=== PATIENT | female | born 1980 | race Two or more races ===

== ENCOUNTER 2017-11-09 18:26 | Emergency (ER) | payer MEDICAID ==
--- NOTE | 2017-11-09 20:34 | ED Physician Documentation ---
History of Present Illness - Stated complaint Stated Complaint: ANKLE PX - Chief complaint Chief Complaint: Ext Problem - History obtained from History obtained from: Patient - History of Present Illness Timing: How many weeks ago (2-3) Pain level now: 7 Improved by: rest Worsened by: weight-bearing, movement - Additonal information Additional information: c/o atraumatic left foot and ankle pain and swelling x 2-3 weeks. the pain and swelling were initially limited to the proximal foot and ankle, particularly lateral aspect, but have gradually spread proximally (still only involving distal-most lower leg). denies chest pain, denies dyspnea Review of Systems Constitutional: denies: Fever, Chills, Sweats Cardiac: denies: Chest pain / pressure Respiratory: denies: Dyspnea Skin: denies: Rash Musculoskeletal: reports: Extremity pain, Joint pain, Extremity swelling, Joint swelling, Pain with weight bearing Neurologic: denies: Focal weakness, Numbness PD PAST MEDICAL HISTORY - Past Medical History Past Medical History: No Musculoskeletal: Chronic back pain - Past Surgical History Past Surgical History: Yes Ortho: Spine surgery - Present Medications Home Medications: Ambulatory Orders Medication Instructions Recorded Confirmed Dicyclomine [Bentyl] 10 mg PO Q6H PRN #10 capsule 01/19/16 Loperamide [Imodium] 2 mg PO ONCE PRN #8 capsule 01/19/16 - Allergies Allergies/Adverse Reactions: Allergies Allergy/AdvReac Type Severity Reaction Status Date / Time No Known Drug Allergies Allergy Verified 01/19/16 11:54 - Social History Does the pt smoke?: No Smoking Status: Never smoker Does the pt drink ETOH?: No Does the pt have substance abuse?: No - Immunizations Immunizations are current?: Yes - POLST Patient has POLST: No PD ED PE NORMAL - Vitals Vital signs reviewed: Yes - General General: Alert and oriented X 3, No acute distress, Well developed/nourished - Respiratory Respiratory: No respiratory distress - Derm Derm: Normal color, Warm and dry, No rash - Extremities Extremities: No tenderness to palpate, Normal ROM s pain, No calf tenderness / cord, Other (trace left foot and ankle edema) Results - Vitals Vitals: Vital Signs - 24 hr 11/09/17 11/09/17 11/09/17 18:36 20:12 23:41 Temperature 36.2 C L 36.3 C L 36.4 C L Heart Rate 83 87 68 Respiratory 16 16 12 Rate Blood Pressure 148/111 H 144/98 H 160/93 H O2 Saturation 99 99 99 Oxygen O2 Source Room air - Rads (name of study) LLE doppler US Radiology: Prelim report reviewed, See rad report PD MEDICAL DECISION MAKING - ED course Complexity details: reviewed results, re-evaluated patient, considered differential, d/w patient - Sepsis Event Vital Signs: Vital Signs - 24 hr 11/09/17 11/09/17 11/09/17 18:36 20:12 23:41 Temperature 36.2 C L 36.3 C L 36.4 C L Heart Rate 83 87 68 Respiratory 16 16 12 Rate Blood Pressure 148/111 H 144/98 H 160/93 H O2 Saturation 99 99 99 Oxygen O2 Source Room air Departure - Departure Disposition: 01 Home, Self Care Clinical Impression: Pain of lower extremity Condition: Good Instructions: ED Leg Swelling Unilateral Follow-Up: [facility] [place] [Provider Group] [facility] [Provider Group] Discharge Date/Time: 11/09/17 23:43
--- NOTE | 2017-11-09 21:58 | Ultrasound Report ---
Reason: atraumatic LLE swelling, pain Procedure Date: 11/09/2017 Accession Number: [id number] / [id number] Procedure: US - Duplex Ext Veins Left CPT Code: FULL RESULT: EXAM: LEFT LOWER EXTREMITY VENOUS ULTRASOUND EXAM DATE: 11/09/2017 09:15 PM. CLINICAL HISTORY: Atraumatic left lower extremity swelling, pain. COMPARISON: None. TECHNIQUE: Real-time sonographic vascular imaging was performed by the oyster worker through the lower extremity utilizing both color-flow and Doppler spectral analysis. Multiple patient portal representative static images were saved for review. FINDINGS: Common Femoral Vein (CFV): Normal. CFV-GSV Junction: Normal. Profunda Femoral Vein (PFV): Normal. Femoral Vein (FV) Prox: Normal. Femoral Vein (FV) Mid: Normal. Femoral Vein (FV) Dist: Normal. Popliteal Vein: Normal. Posterior Tibial Veins: Normal. Peroneal Veins: Limited visualization. IMPRESSION: No evidence for deep venous thrombosis. RADIA
[2017-11-09 23:42] VITALS: BP 160/93
== END 2017-11-09 23:43 | disposition home or self-care (01) ==
LOC: ED 18:26
DX: M79.662 Pain in left lower leg (principal); R22.42 Localized swelling, mass and lump, left lower limb
CPT/HCPCS: 99282; 99283

== ENCOUNTER 2018-06-30 15:58 | Emergency (ER) | payer MEDICAID ==
[2018-06-30 16:04] VITALS: BP 156/106
[2018-06-30] MEDS ORDERED: CYCLOBENZAPRINE 10 MG TABLET PO STA (16:30)
--- NOTE | 2018-06-30 16:38 | ED Physician Documentation ---
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 No fevers. Does not recall any specific injury. Took Motrin without relief. No numbness tingling. No changes in her vision. No headaches. No numbness tingling in the hand or arm Review of Systems Constitutional: denies: Fever : denies: Now EGA Skin: denies: Rash PD PAST MEDICAL HISTORY - Past Medical History Past Medical History: Yes Musculoskeletal: Chronic back pain - Past Surgical History Past Surgical History: Yes Ortho: Spine surgery - Present Medications Home Medications: Ambulatory Orders Medication Instructions Recorded Confirmed Cyclobenzaprine [Flexeril] 10 mg PO TID PRN #20 tablet 06/30/18 Meloxicam [Mobic] 15 mg PO DAILY PRN #20 tablet 06/30/18 - Allergies Allergies/Adverse Reactions: Allergies Allergy/AdvReac Type Severity Reaction Status Date / Time No Known Drug Allergies Allergy Verified 06/30/18 16:04 - Social History Does the pt smoke?: No Smoking Status: Never smoker Does the pt drink ETOH?: No Does the pt have substance abuse?: No - Immunizations Immunizations are current?: Yes - POLST Patient has POLST: No PD ED PE NORMAL - Vitals Vital signs reviewed: Yes - General General: Alert and oriented X 3, No acute distress - HEENT HEENT: Atraumatic, PERRL, Moist mucous membranes - Neck Neck: Supple, no meningeal sign, No bony TTP, No JVD, No bruit, Other (Mild paraspinal spasm right paracervical. 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 Will trial on anti- inflammatories as well as muscle relaxants for home. Will follow up with her doctor for further care. No evidence of carotid or vertebral artery dissection. Normal neurological exam. No evidence of meningitis. Patient counseled regarding signs and symptoms for which I believe and urgent re-evaluation would be necessary. Patient with good understanding of and agreement to plan and is comfortable going home at this time This document was made in part using voice recognition software. While efforts are made to proofread this document, sound alike and grammatical errors may occur. Departure - Departure Disposition: 01 Home, Self Care Clinical Impression: Neck muscle spasm Condition: Good Instructions: ED Spasm Neck No Injury Follow-Up: your,doctor in 1 week [Other] Prescriptions: Cyclobenzaprine [Flexeril] 10 mg PO TID PRN #20 tablet PRN Reason: Spasms Meloxicam [Mobic] 15 mg PO DAILY PRN #20 tablet PRN Reason: pain Comments: Continue to gently stretch your neck. This should improve over the next few days. Return if you worsen. Do not drive or operate heavy machinery while taking the Flexeril. Forms: Activity restrictions Discharge Date/Time: 06/30/18 16:41
== END 2018-06-30 16:41 | disposition home or self-care (01) ==
LOC: ED 15:58
DX: M62.838 Other muscle spasm (principal)
CPT/HCPCS: 99282; 99283; A9270

== ENCOUNTER 2019-04-04 16:27 | Emergency (ER) | payer SELFPAY ==
[2019-04-04 16:44] VITALS: BP 153/100
--- NOTE | 2019-04-04 16:54 | ED Physician Documentation ---
PD HPI FEMALE - Stated complaint Stated Complaint: FEMALE - Chief complaint Chief Complaint: General - History obtained from History obtained from: Patient - History of Present Illness Timing - onset: How many days ago (few) Timing - duration: Days (few) Timing - details: Gradual onset, Still present Associated symptoms: Vaginal discharge, Genital sore/lesion (feeling little bumps near right labia. Not tender.). No: Dysuria, Urinary frequency Contributing factors: Sexually active Similar symptoms before: Has not had sx before Recently seen: Not recently seen Review of Systems Constitutional: denies: Fever, Chills Nose: denies: Rhinorrhea / runny nose, Congestion Throat: denies: Oral lesions / sores, Sore throat Respiratory: denies: Cough : reports: Discharge. 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 Musculoskeletal: Chronic back pain - Past Surgical History Past Surgical History: Yes Ortho: Spine surgery - Present Medications Home Medications: Ambulatory Orders Medication Instructions Recorded Confirmed Cyclobenzaprine [Flexeril] 10 mg PO TID PRN #20 tablet 06/30/18 Meloxicam [Mobic] 15 mg PO DAILY PRN #20 tablet 06/30/18 Fluconazole [Diflucan] 150 mg PO Q3D #2 tablet 04/04/19 Metronidazole [Flagyl] 500 mg PO BID #20 tablet 04/04/19 - Allergies Allergies/Adverse Reactions: Allergies Allergy/AdvReac Type Severity Reaction Status Date / Time No Known Drug Allergies Allergy Verified 04/04/19 16:35 - Social History Does the pt smoke?: No Smoking Status: Never smoker Does the pt drink ETOH?: No Does the pt have substance abuse?: No - Immunizations Immunizations are current?: Yes - POLST Patient has POLST: No PD ED PE NORMAL - Vitals Vital signs reviewed: Yes - General General: Alert and oriented X 3, No acute distress, Well developed/nourished - Abdomen Abdomen: Soft, Non tender - Female 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 Vault with odorous, white to clear watery discharge. No cervicitis noted. ) - Rectal Rectal: Deferred - Back Back: No CVA TTP Results - Vitals Vitals: Vital Signs - 24 hr 04/04/19 16:35 Temperature 36.8 C Heart Rate 92 Respiratory 15 Rate Blood Pressure 153/100 H O2 Saturation 100 Oxygen O2 Source Room air - Labs Labs: Laboratory Tests 04/04/19 04/04/19 17:05 17:53 Urine Color YELLOW Urine Clarity CLEAR Urine pH 5.5 Ur Specific Gore >=1.030 H Urine Protein NEGATIVE Urine Glucose (UA) NEGATIVE Urine Ketones NEGATIVE Urine Occult Blood NEGATIVE Urine Nitrite POSITIVE H Urine Bilirubin NEGATIVE Urine Urobilinogen 0.2 (NORMAL) Ur Leukocyte Esterase NEGATIVE Urine RBC 3 Urine WBC 0-3 Ur Squamous Epith Cells RARE Squamous Urine Bacteria Moderate H Urine Mucus Marked Strands Ur Microscopic Review INDICATED Urine Culture Comments INDICATED Urine HCG, Qual NEGATIVE C. glabrata (PCR) NEGATIVE C. krusei (PCR) NEGATIVE Brianna species DNA NEGATIVE T. vaginalis (PCR) NEGATIVE Bact Vaginosis (PCR) POSITIVE A PD MEDICAL DECISION MAKING - ED course Complexity details: reviewed results, considered differential (discharge appearance and odor c/w BV, and also consider yeast vaginitis. ), d/w patient Departure - Departure Disposition: 01 Home, Self Care Clinical Impression: Vaginitis Qualifiers: Chronicity: acute Qualified Code(s): N76.0 - Acute vaginitis Condition: Stable Record reviewed to determine appropriate education?: Yes Instructions: ED Vaginosis Bacterial, ED Vaginal Infec Fungal Brianna Prescriptions: Fluconazole [Diflucan] 150 mg PO Q3D #2 tablet Metronidazole [Flagyl] 500 mg PO BID #20 tablet Comments: This clinically looks like combination of bacterial and yeast vaginitis. We will treat her with Diflucan and metronidazole as prescribed. We did do test to look for those conditions as well as STDs. The results of that will be in a day or 2 and will call you if we need to change treatment. Otherwise stay well-hydrated. Tylenol or ibuprofen if needed for discomfort or pains. I would anticipate improvement over the next several days with resolution by a week. Recheck if not improved during that timeframe. Discharge Date/Time: 04/04/19 18:09
[2019-04-04 17:11] LABS: BILIRUBIN,URINE NEGATIVE (NEGATIVE); GLUCOSE, URINE (UA) NEGATIVE (NEGATIVE); KETONES,URINE (UA) NEGATIVE (NEGATIVE); LEUKOCYTE ESTERASE, URINE NEGATIVE (NEGATIVE); NITRITE,URINE POSITIVE (NEGATIVE); OCCULT BLOOD,URINE NEGATIVE (NEGATIVE); PH,URINE 5.5 PH (5.0-7.5); PROTEIN,URINE NEGATIVE (NEGATIVE); UROBILINOGEN,URINE 0.2 (NORMAL) E.U./dL (NORMAL)
[2019-04-04 17:16] LABS: CLARITY,URINE CLEAR (CLEAR); HCG UR QUAL NEGATIVE
[2019-04-04 17:28] LABS: BACTERIA,URINE Moderate /HPF (None Seen); MUCUS,URINE Marked Strands; RBC,URINE 3 /HPF (0-5); SQUAMOUS EPITHELIAL CELL,UR RARE Squamous (<= Few)
[2019-04-04] MEDS ORDERED: metroNIDAZOLE 250 MG TABLET PO STA (17:54)
[2019-04-04] MEDS ORDERED: FLUCONAZOLE 100 MG TABLET PO STA (17:54)
[2019-04-04 19:57] LABS: CANDIDA GROUP DNA NEGATIVE (NEGATIVE); CANDIDA KRUSEI DNA NEGATIVE (NEGATIVE); TRICHOMONAS VAGINALIS DNA NEGATIVE (NEGATIVE)
[2019-04-04 22:32] LABS: TRICHOMONAS VAGINALIS DNA NEGATIVE (NEGATIVE)
== END 2019-04-04 18:09 | disposition home or self-care (01) ==
LOC: ED 16:27
DX: N76.0 Acute vaginitis (principal)
CPT/HCPCS: 81001; 81025; 87077; 87086; 87181; 87481; 87491; 87591; 87661; 87801; 99283; 99284; A9270; 81003

== ENCOUNTER 2019-06-07 12:33 | Emergency (ER) | payer OTHER ==
[2019-06-07] MEDS ORDERED: IBUPROFEN 800 MG TABLET PO STA (14:01)
[2019-06-07] MEDS ORDERED: TETANUS/DIPHTHERIA/PERTUSSIS 0.5 ML SYRINGE IM ONE (14:06)
--- NOTE | 2019-06-07 14:09 | ED Physician Documentation ---
PD HPI UPPER EXT INJURY - Stated complaint Stated Complaint: FINGER LAC - Chief complaint Chief Complaint: Laceration - History obtained from History obtained from: Patient - History of Present Illness Location: Left, Finger (index) Pain level max: 5 Pain level now: 2 Improved by: Rest Worsened by: Moving, Palpating Associated symptoms: No: Weakness, Numbness, Tingling, Swelling Recently seen: Not recently seen - Additonal information Additional information: 38-year-old right-handed female caught the right fifth digit caught in a car door. This caused an abrasion and pain. Worse with movement and better with rest. 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 Musculoskeletal: Chronic back pain - Past Surgical History Past Surgical History: Yes Ortho: Spine surgery - Present Medications Home Medications: Ambulatory Orders Medication Instructions Recorded Confirmed No Known Home Medications 06/07/19 06/07/19 - Allergies Allergies/Adverse Reactions: Allergies Allergy/AdvReac Type Severity Reaction Status Date / Time No Known Drug Allergies Allergy Verified 06/07/19 12:40 - Social History Does the pt smoke?: No Smoking Status: Never smoker Does the pt drink ETOH?: No Does the pt have substance abuse?: No - Immunizations Immunizations are current?: No Immunizations: TDAP >10years/unknown - POLST Patient has POLST: No PD ED PE NORMAL - Vitals Vital signs reviewed: Yes - General General: Alert and oriented X 3, No acute distress - HEENT HEENT: Moist mucous membranes - Derm Derm: Warm and dry - Extremities Extremities: Other (Right fifth digit, distal phalanx is neurovascular intact. Very small subungual hematoma. Abrasions to the distal finger. No bony tenderness over the remainder of the finger. Full range of motion.) - Neuro Neuro: Alert and oriented X 3 Results - Vitals Vitals: Vital Signs - 24 hr 06/07/19 12:38 Temperature 36.1 C L Heart Rate 68 Respiratory 18 Rate Blood Pressure 144/99 H O2 Saturation 100 Oxygen O2 Source Room air PD MEDICAL DECISION MAKING - ED course Complexity details: considered differential, d/w patient ED course: 38-year-old female with a right fifth digit crush injury from a car door. Abrasions were covered with Dermabond. Tolerated well. Placed in a splint to protect the distal aspect of the finger. 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 Patient declines an x-ray at this time. Patient counseled regarding signs and symptoms for which I believe and urgent re-evaluation would be necessary. Patient with good understanding of and agreement to plan and is comfortable going home at this time This document was made in part using voice recognition software. While efforts are made to proofread this document, sound alike and grammatical errors may occur. Departure - Departure Disposition: Home, Self Care Clinical Impression: Finger laceration Qualifiers: Encounter type: initial encounter Finger: little finger Damage to nail status: without damage Foreign body presence: without foreign body Laterality: right Qu alified Code(s): S61.216A - Laceration without foreign body of right little finger without damage to nail, initial encounter Condition: Good Instructions: ED Laceration Hand Follow-Up: your,doctor as needed. [Other] Comments: Return if you worsen. The glue will dissolve in a few days. You can wear the splint as needed for comfort. Return if you notice redness, swelling or drainage from the wound. Return also for increasing pain. We did discuss an x- ray today, but did not perform this at this time. This would not change our management anyway at this time.
[2019-06-07 14:21] VITALS: BP 145/89
== END 2019-06-07 14:26 | disposition home or self-care (01) ==
LOC: ED 12:33
DX: S60.416A Abrasion of right little finger, initial encounter (principal); S60.151A Contusion of right little finger with damage to nail, initial encounter; W23.1XXA Caught, crushed, jammed, or pinched between stationary objects, initial encounter
CPT/HCPCS: 90471; 90715; 99283; 99284; A9270

== ENCOUNTER 2019-06-08 21:03 | Emergency (ER) | payer OTHER ==
[2019-06-08 21:09] VITALS: BP 150/100
--- NOTE | 2019-06-08 21:30 | ED Physician Documentation ---
History of Present Illness - Stated complaint Stated Complaint: FINGER INJ - Chief complaint Chief Complaint: Ext Problem - History obtained from History obtained from: Patient - History of Present Illness Timing: Yesterday Pain level max: 0 Pain level now: 0 - Additonal information Additional information: 38-year-old female seen here yesterday for a crush injury to the right fifth digit. She states that there was bleeding today. Came back in for repeat evaluation. No pain. No fevers. Nothing makes it better or worse. 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 Musculoskeletal: Chronic back pain - Past Surgical History Past Surgical History: Yes Ortho: Spine surgery - Present Medications Home Medications: Ambulatory Orders Medication Instructions Recorded Confirmed No Known Home Medications 06/07/19 06/07/19 - Allergies Allergies/Adverse Reactions: Allergies Allergy/AdvReac Type Severity Reaction Status Date / Time No Known Drug Allergies Allergy Verified 06/08/19 21:05 - Social History Does the pt smoke?: No Smoking Status: Never smoker Does the pt drink ETOH?: No Does the pt have substance abuse?: No - Immunizations Immunizations are current?: No Immunizations: TDAP >10years/unknown - POLST Patient has POLST: No PD ED PE NORMAL - Vitals Vital signs reviewed: Yes - General General: Alert and oriented X 3, No acute distress - Derm Derm: Warm and dry - Extremities Extremities: Other (Right fifth digit with glue in place. No active bleeding. Neurovascular intact. No subungual hematoma. No signs of infection) - Neuro Neuro: Alert and oriented X 3 Results - Vitals Vitals: Vital Signs - 24 hr 06/08/19 21:05 Temperature 36.7 C Heart Rate 82 Respiratory 14 Rate Blood Pressure 150/100 H O2 Saturation 98 Oxygen O2 Source Room air PD MEDICAL DECISION MAKING - ED course Complexity details: considered differential, d/w patient ED course: Glue remains intact. I did offer to remove the glue and repair the wound in a different manner patient declines this. We will continue the current treatment plan. No signs of infection. No subungual hematoma. Pad of the finger is soft. Neurovascularly intact. Patient counseled regarding signs and symptoms for which I believe and urgent re-evaluation would be necessary. Patient with good understanding of and agreement to plan and is comfortable going home at this time This document was made in part using voice recognition software. While efforts are made to proofread this document, sound alike and grammatical errors may occur. Departure - Departure Disposition: 01 Home, Self Care Clinical Impression: Visit for wound check Condition: Good Instructions: ED Crush Injury Finger No Fx Follow-Up: your,doctor in 1 week for wound check [Other] Comments: Return if you worsen. Continue to keep the wound clean at home. The glue will fall off on its own in a few days. Return if you notice redness, swelling, drainage from the wound. Discharge Date/Time: 06/08/19 21:38
== END 2019-06-08 21:38 | disposition home or self-care (01) ==
LOC: ED 21:03
DX: S61.216D Laceration without foreign body of right little finger without damage to nail, subsequent encounter (principal); X58.XXXD Exposure to other specified factors, subsequent encounter
CPT/HCPCS: 99282

== ENCOUNTER 2020-01-01 16:19 | Outpatient (CLI) | payer OTHER | END 2020-01-01 23:59 | disposition home or self-care (01) | LOC: LAB.R 16:19 | PROVIDERS: ATTEND Family Medicine | DX: R39.9 Unspecified symptoms and signs involving the genitourinary system (principal) | CPT/HCPCS: 87086 ==

== ENCOUNTER 2020-03-01 15:25 | Emergency (ER) | payer OTHER ==
[2020-03-01] MEDS ORDERED: KETOROLAC 30 MG/ML VIAL IVP STA (15:53)
[2020-03-01] MEDS ORDERED: SODIUM CHLORIDE 0.9% 1,000 ML IV STA (15:53)
[2020-03-01] MEDS ORDERED: DEXAMETHASONE 10 MG/ML VIAL IVP STA (15:53)
--- NOTE | 2020-03-01 16:05 | ED Physician Documentation ---
PD HPI BACK PAIN - Stated complaint Stated Complaint: BACK PX/INJ - Chief complaint Chief Complaint: Back Pain - History obtained from History obtained from: Patient - History of Present Illness Timing - onset: How many days ago (5) Timing - duration: Days (5) Timing - details: Abrupt onset, Still present Location: Lower, Right, Left Quality: Pain, Spasm, Sharp, Similar to prior episodes Associated symptoms: No: Fever, Weakness, Numbness, Incontinent of urine, Unable to urinate, Hematuria, Incontinent of stool Improves with: Rest, Ice, Position, Meds Worsened by: Movement Contributing factors: Lifting, Twisting Similar symptoms before: Diagnosis (sciatica) Recently seen: Other (urgent care) - Additional information Additional information: 39-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 She went into the urgent care the next day and was prescribed some muscle relaxant had some improvement over the next 2 days and then today had the onset of pain on the right side. Review of Systems Constitutional: denies: Fever Eyes: denies: Decreased vision Ears: denies: Ear pain Nose: denies: Congestion Throat: denies: Sore throat Cardiac: denies: Chest pain / pressure, Palpitations Respiratory: denies: Dyspnea, Cough GI: denies: Abdominal Pain, Nausea, Vomiting : denies: Dysuria, Frequency Skin: denies: Rash Musculoskeletal: reports: Back pain. 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 Musculoskeletal: Chronic back pain - Past Surgical History Past Surgical History: Yes Ortho: Spine surgery - Present Medications Home Medications: Ambulatory Orders Medication Instructions Recorded Confirmed Cyclobenzaprine [Flexeril] 10 mg PO TID PRN #20 tablet 03/01/20 Hydrocodone/Acetaminophen [[place] 1 - 2 each PO Q6HR PRN #14 tablet 03/01/20 5-325 Tablet] Meloxicam [Mobic] 7.5 mg PO BID 03/01/20 03/01/20 Methocarbamol [Robaxin-750] 750 mg PO BID PRN 03/01/20 03/01/20 - Allergies Allergies/Adverse Reactions: Allergies Allergy/AdvReac Type Severity Reaction Status Date / Time No Known Drug Allergies Allergy Verified 03/01/20 15:28 - Social History Does the pt smoke?: No Smoking Status: Never smoker Does the pt drink ETOH?: No Does the pt have substance abuse?: No - Immunizations Immunizations are current?: No Immunizations: TDAP >10years/unknown - POLST Patient has POLST: No PD ED PE NORMAL - Vitals Vital signs reviewed: Yes (Hypertensive) - General General: Alert and oriented X 3, No acute distress, Well developed/nourished - HEENT HEENT: Atraumatic, PERRL, EOMI - Neck Neck: Supple, no meningeal sign - Respiratory Respiratory: No respiratory distress - Abdomen Abdomen: Normal bowel sounds, Soft, Non tender, Non distended, No organomegaly - Back Back: No CVA TTP, No spinal TTP, Other (There is tenderness to the lower lumbar spine on the right more than the left extends to the sciatic notch) - Derm Derm: Normal color, Warm and dry, No rash - Extremities Extremities: No deformity, Normal ROM s pain, No edema, No calf tenderness / cord - Neuro Neuro: Alert and oriented X 3, box gluer 2-12 intact, No motor deficit, No sensory deficit, Normal speech Eye Opening: Spontaneous Motor: Obeys Commands Verbal: Oriented GCS Score: 15 - Psych Psych: Normal mood, Normal affect Results - Vitals Vitals: Vital Signs - 24 hr 03/01/20 15:28 Temperature 36.4 C L Heart Rate 80 Respiratory 20 Rate Blood Pressure 172/101 H O2 Saturation 100 Oxygen O2 Source Room air - Labs Labs: Laboratory Tests 03/01/20 03/01/20 16:00 16:00 WBC 6.4 RBC 4.38 Hgb 12.9 Hct 38.5 MCV 87.9 MCH 29.5 MCHC 33.5 RDW 12.5 Plt Count 431 MPV 10.2 Neut # (Auto) 3.0 Lymph # (Auto) 2.7 [place] # (Auto) 0.5 Eos # (Auto) 0.1 Baso # (Auto) 0.0 Absolute Nucleated RBC 0.00 Nucleated RBC % 0.0 Sodium 139 Potassium 3.6 Chloride 108 Carbon Dioxide 23 Anion Gap 8.0 BUN 10 Creatinine 0.6 Estimated GFR (MDRD) 112 Glucose 119 H Calcium 9.1 Total Bilirubin 0.6 AST 20 ALT 27 Alkaline Phosphatase 65 Total Protein 8.0 Albumin 4.3 Globulin 3.7 Albumin/Globulin Ratio 1.2 Lipase 28 Procedures - IVC sono (time) 1600 Bedside IVC sono: IVC measures (cm) (1.16), IVC collapsed c insp (cm) (complete), Dehydration (est 1+ liter deficit) PD MEDICAL DECISION MAKING - ED course Complexity details: considered differential, d/w patient ED course: 39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 An IV is begun she is given a liter of saline 10 mg of dexamethasone and 30 mg of Toradol intravenously. She has some improvement here. Departure - Departure Disposition: 01 Home, Self Care Clinical Impression: Spasm of back muscles, Dehydration Condition: Stable Instructions: ED Spasm Back No Trauma, ED Dehydration Follow-Up: Scarlet Evangelista PA [Primary Care Provider] - Prescriptions: Hydrocodone/Acetaminophen [[place] 5-325 Tablet] 1 - 2 each PO Q6HR PRN #14 tablet PRN Reason: Pain Cyclobenzaprine [Flexeril] 10 mg PO TID PRN #20 tablet PRN Reason: Spasms Forms: Activity restrictions
[2020-03-01 16:07] LABS: BASOPHILS % (AUTO) 0.6 %; EOSINOPHILS # (AUTO) 0.1 10^3/uL (0.0-0.7); EOSINOPHILS % (AUTO) 1.6 %; HGB - HEMOGLOBIN 12.9 g/dL (12.0-16.0); LYMPHOCYTES # (AUTO) 2.7 10^3/uL (1.5-3.5); LYMPHOCYTES % (AUTO) 42.2 %; MEAN CORPUSCULAR HEMOGLOBIN 29.5 pg (27.0-31.0); MEAN CORPUSCULAR HGB CONC 33.5 g/dL (32.0-36.0); MEAN CORPUSCULAR VOLUME 87.9 fL (81.0-99.0); MEAN PLATELET VOLUME 10.2 fL (7.9-10.8); MONOCYTES # (AUTO) 0.5 10^3/uL (0.0-1.0); MONOCYTES % (AUTO) 7.9 %; NEUTROPHILS % (AUTO) 47.5 %; PLT - PLATELET COUNT 431 10^3/uL (130-450); RED BLOOD COUNT 4.38 10^6/uL (4.20-5.40); RED CELL DISTRIBUTION WIDTH 12.5 % (12.0-15.0); WHITE BLOOD COUNT 6.4 x10^3/uL (4.8-10.8)
[2020-03-01 16:20] LABS: ALBUMIN 4.3 g/dL (3.2-5.5); ALBUMIN/GLOBULIN RATIO 1.2 (1.0-2.2); BILIRUBIN,TOTAL 0.6 mg/dL (0.2-1.0); CALCIUM 9.1 mg/dL (8.5-10.3); CREATININE 0.6 mg/dL (0.4-1.0)
[2020-03-01 17:03] VITALS: BP 179/94
== END 2020-03-01 17:05 | disposition home or self-care (01) ==
LOC: ED 15:25
DX: M62.830 Muscle spasm of back (principal); E86.0 Dehydration; M54.5 Low back pain; X50.0XXA Overexertion from strenuous movement or load, initial encounter; Y93.F2 Activity, caregiving, lifting; Y99.0 Civilian activity done for income or pay
CPT/HCPCS: 36415; 80053; 83690; 85025; 96361; 96374; 96375; 99284

== ENCOUNTER 2020-10-05 08:00 | Outpatient (CLI) | payer OTHER ==
[2020-10-05 12:25] LABS: BASOPHILS # (AUTO) 0.1 10^3/uL (0.0-0.1); BASOPHILS % (AUTO) 0.7 %; EOSINOPHILS # (AUTO) 0.1 10^3/uL (0.0-0.7); EOSINOPHILS % (AUTO) 1.4 %; HCT - HEMATOCRIT 41.9 % (37.0-47.0); HGB - HEMOGLOBIN 13.9 g/dL (12.0-16.0); LYMPHOCYTES # (AUTO) 2.8 10^3/uL (1.5-3.5); LYMPHOCYTES % (AUTO) 38.4 %; MEAN CORPUSCULAR HEMOGLOBIN 29.1 pg (27.0-31.0); MEAN CORPUSCULAR HGB CONC 33.2 g/dL (32.0-36.0); MEAN CORPUSCULAR VOLUME 87.8 fL (81.0-99.0); MONOCYTES # (AUTO) 0.8 10^3/uL (0.0-1.0); MONOCYTES % (AUTO) 10.9 %; NEUTROPHILS # (AUTO) 3.5 10^3/uL (1.5-6.6); NEUTROPHILS % (AUTO) 48.3 %; PLT - PLATELET COUNT 387 10^3/uL (130-450); RED BLOOD COUNT 4.77 10^6/uL (4.20-5.40); RED CELL DISTRIBUTION WIDTH 13.8 % (12.0-15.0); WHITE BLOOD COUNT 7.3 x10^3/uL (4.8-10.8)
[2020-10-05 12:50] LABS: THYROID STIMULATING HORMONE 0.87 uIU/mL (0.34-5.60)
[2020-10-05 13:07] LABS: ALBUMIN 4.6 g/dL (3.2-5.5); ALBUMIN/GLOBULIN RATIO 1.2 (1.0-2.2); ALKALINE PHOSPHATASE 58 IU/L (42-121); ALT ALANINE AMINOTRANSFERASE 27 IU/L (10-60); AST ASPARTATE AMINOTRANSFERASE 20 IU/L (10-42); BILIRUBIN,TOTAL 0.5 mg/dL (0.2-1.0); BUN - BLOOD UREA NITROGEN 11 mg/dL (6-20); CALCIUM 9.5 mg/dL (8.5-10.3); CARBON DIOXIDE - CO2 24 mmol/L (21-32); CHLORIDE 109 mmol/L (101-111); CHOL/HDL RATIO 6.7 (<4.4); CHOLESTEROL 194 mg/dL; CREATININE 0.6 mg/dL (0.4-1.0); GFR - MDRD 112 (>89); GLUCOSE 103 mg/dL (70-100); HDL CHOLESTEROL 29 mg/dL; LDL CHOLESTEROL,CALCULATED 152 mg/dL; LDL/HDL RATIO 5.2 (<4.4); POTASSIUM 3.8 mmol/L (3.5-5.0); SODIUM 142 mmol/L (135-145); TOTAL PROTEIN 8.4 g/dL (6.7-8.2); TRIGLYCERIDES 67 mg/dL; VLDL CHOLESTEROL 13 mg/dL
[2020-10-06 16:45] LABS: HIV AG/AB 4TH GEN NON-REACTIVE (NON-REACTIVE)
[2020-10-07 22:26] LABS: HCV RNA QNT <1.18 NOT DETECTED LogIU/mL; HCV RNA QUANT RT PCR <15 NOT DETECTED IU/mL
== END 2020-10-05 23:59 | disposition home or self-care (01) ==
LOC: LAB.WCP 08:00
PROVIDERS: ATTEND Nurse Practitioner
DX: Z00.00 Encounter for general adult medical examination without abnormal findings (principal); Z13.220 Encounter for screening for lipoid disorders; Z13.29 Encounter for screening for other suspected endocrine disorder; Z11.4 Encounter for screening for human immunodeficiency virus [HIV]; R39.9 Unspecified symptoms and signs involving the genitourinary system; Z11.59 Encounter for screening for other viral diseases
CPT/HCPCS: 36415; 80053; 80061; 83721; 84443; 85025; 87086; 87389; 87522

== ENCOUNTER 2020-10-13 12:43 | Emergency (ER) | payer OTHER ==
[2020-10-13 13:07] VITALS: BP 136/83
--- NOTE | 2020-10-13 13:21 | ED Physician Documentation ---
History of Present Illness - Stated complaint Stated Complaint: BACK PX - Chief complaint Chief Complaint: Back Pain - Additonal information Additional information: 39-year-old female presents emergency department for evaluation of acute on chronic low back pain. She does have a history of previous disc herniation status post surgery in the L4 region. She reports that she injured her back at work many months ago. Since the initial injury she has been having increasing pain with radiation to the right leg but now she is also having some numbness on the lateral left leg. She is able to walk but sometimes feels like her white right leg is weak. There have been no recent falls or trauma. No fevers. No history of clots DVT or cancer. She has been taking ibuprofen at home without relief. Has not found relief with muscle relaxers. She did recently have an MRI completed at [facility] and is scheduled to be referred to a back surgeon though this is pending. There is been no saddle anesthesia or loss of bowel or bladder function. 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 Musculoskeletal: Chronic back pain - Past Surgical History Past Surgical History: Yes Ortho: Spine surgery - Present Medications Home Medications: Ambulatory Orders Medication Instructions Recorded Confirmed Cyclobenzaprine [Flexeril] 10 mg PO TID PRN #20 tablet 03/01/20 Hydrocodone/Acetaminophen [[place] 1 - 2 each PO Q6HR PRN #14 tablet 03/01/20 5-325 Tablet] Meloxicam [Mobic] 7.5 mg PO BID 03/01/20 03/01/20 methocarbamoL [Robaxin-750] 750 mg PO BID PRN 03/01/20 03/01/20 dexAMETHasone [Decadron] 4 mg PO DAILY #5 tablet 10/13/20 - Allergies Allergies/Adverse Reactions: Allergies Allergy/AdvReac Type Severity Reaction Status Date / Time No Known Drug Allergies Allergy Verified 10/13/20 13:07 - Social History Does the pt smoke?: No Smoking Status: Never smoker Does the pt drink ETOH?: No Does the pt have substance abuse?: No - Immunizations Immunizations are current?: No Immunizations: TDAP >10years/unknown - POLST Patient has POLST: No PD ED PE EXPANDED - General General: Alert, No acute distress - Neck Neck: Supple w/out meningeal sx. No: Adenopathy - Cardiac Cardiac: Regular Rate, Radial strong equal, Pedal strong equal. No: Murmur Present - Respiratory Respiratory: Clear to ausultation juan. No: Distress, Labored - Abdomen Abdomen: Normal Bowel sounds. No: Tender to palpation - Back Back: Soft tissue tenderness (Well-healed midline lumbar scar. No midline tenderness elicited. Positive straight leg exam on the right. Motor strength 5/5 bLE. 2+ patellar rflx bilaterally. tingling and loss of sensation lateral thigh. able to walk on toes bilaterally, but not heel right foot) - Derm Derm: Normal color, Warm and dry Results - Vitals Vitals: Vital Signs - 24 hr 10/13/20 13:04 Temperature 36.2 C L Heart Rate 67 Respiratory 15 Rate Blood Pressure 136/83 H O2 Saturation 100 Oxygen O2 Source Room air PD MEDICAL DECISION MAKING - ED course Complexity details: reviewed results, re-evaluated patient, d/w patient ED course: 39-year-old female presents emergency department with acute on chronic low back pain now with increased tingling to the left leg and weakness to the right leg though this was subjective and on exam she had equal strength bilaterally. Exam is consistent with a sciatica on the right leg though she may also have some neuropathy and impingement of the left.She reportedly recently underwent an MRI and has been referred to a back surgeon for further evaluation of herniated disks that she believes is in the L5-S1 region. She has been taking ibuprofen without relief of pain. There are no red flags on exam. Patient will be given a 5-day course of Decadron. I have encouraged her to have very close follow-up with her primary care doctor who should be managing this pain in the long-term. Emergent return precautions were discussed. Departure - Departure Clinical Impression: Low back pain Qualifiers: Chronicity: unspecified Back pain laterality: bilateral Sciatica presence: with sciatica Sciatica laterality: sciatica of right side Qualified Code(s): M54.41 - Lumbago with sciatica, right side Condition: Stable Record reviewed to determine appropriate education?: Yes Prescriptions: dexAMETHasone [Decadron] 4 mg PO DAILY #5 tablet Comments: Emerita the exam of your back is consistent with a herniated disc and nerve compression. It is very important that you see your primary care doctor next week to discuss longer-term management of your back pain. I am starting you today on a 5-day course of Decadron which should begin to help over the next 24 to 48 hours. I do recommend that once you are done with a dose of Decadron you take 600 mg of ibuprofen with food 3 times a day. You may alternate that with Tylenol 500 mg also 3 times a day. Gentle stretching can be helpful. If at any point you become incontinent of stool or urine, have sudden high fevers or numbness and tingling in your genital area then please return immediately to the ER for a second evaluation
== END 2020-10-13 13:27 | disposition home or self-care (01) ==
LOC: ED 12:43
DX: M54.41 Lumbago with sciatica, right side (principal); G89.29 Other chronic pain
CPT/HCPCS: 99282; 99284

== ENCOUNTER 2020-10-18 22:09 | Outpatient (CLI) | payer OTHER | END 2020-10-18 22:10 | disposition critical access hospital (66) | LOC: EMS 22:09 | DX: M54.5 Low back pain (principal); M79.604 Pain in right leg | CPT/HCPCS: A0425; A0427 ==

== ENCOUNTER 2020-10-18 22:28 | Emergency (ER) | payer OTHER ==
--- NOTE | 2020-10-18 23:54 | ED Physician Documentation ---
PD HPI BACK PAIN - Stated complaint Stated Complaint: HERNIATED DISK - Chief complaint Chief Complaint: Back Pain - History obtained from History obtained from: Patient - History of Present Illness Timing - onset: How many months ago (episodic since injury eight months ago but severe over past week) Timing - details: Waxing and waning Pain level max: 10 Pain level now: 8 Location: Right Quality: Pain, Spasm Associated symptoms: No: Fever, Weakness, Numbness, Incontinent of urine, Unable to urinate, Hematuria, Incontinent of stool Improves with: Rest Worsened by: Movement Recently seen: Emergency Dept - Additional information Additional information: Patient c/o right low back pain that radiates down posterior aspect of RLE. Patient says she has had similar painful episodes since injury in February 2020 and she see is seen at [facility], next appointment is scheduled for MondayOctober 20. She had recent MRI. She was T+R 10/13 from [facility] ED, and 10/18 (earlier today) at . She has had no relief with medications prescribed from these visits. 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 Musculoskeletal: Chronic back pain - Past Surgical History Past Surgical History: Yes Ortho: Spine surgery - Present Medications Home Medications: Ambulatory Orders Medication Instructions Recorded Confirmed Cyclobenzaprine [Flexeril] 10 mg PO TID PRN #20 tablet 03/01/20 Hydrocodone/Acetaminophen [[place] 1 - 2 each PO Q6HR PRN #14 tablet 03/01/20 5-325 Tablet] Meloxicam [Mobic] 7.5 mg PO BID 03/01/20 03/01/20 methocarbamoL [Robaxin-750] 750 mg PO BID PRN 03/01/20 03/01/20 dexAMETHasone [Decadron] 4 mg PO DAILY #5 tablet 10/13/20 Oxycodone HCl/Acetaminophen 1 - 2 each PO Q6H PRN #14 tablet 10/19/20 [Percocet 5-325 mg Tablet] diazePAM [Valium] 5 mg PO TID PRN #15 tablet 10/19/20 - Allergies Allergies/Adverse Reactions: Allergies Allergy/AdvReac Type Severity Reaction Status Date / Time No Known Drug Allergies Allergy Verified 10/13/20 13:07 - Social History Does the pt smoke?: No Smoking Status: Never smoker Does the pt drink ETOH?: No Does the pt have substance abuse?: No - Immunizations Immunizations are current?: No Immunizations: TDAP >10years/unknown - POLST Patient has POLST: No PD ED PE NORMAL - Vitals Vital signs reviewed: Yes - General General: Alert and oriented X 3, No acute distress (NAD at rest, lying on side (left side decubitis), but obvious painful distress with movement involving lo wer back or right lower extremity), Well developed/nourished - Neck Neck: Supple, no meningeal sign - Cardiac Cardiac: RRR, No murmur - Respiratory Respiratory: No respiratory distress, Clear bilaterally - Abdomen Abdomen: Soft, Non tender - Back Back: No CVA TTP, No spinal TTP - Derm Derm: Normal color, No rash - Neuro Neuro: No motor deficit (5/5 right dorsi/plantarflexion. unable to test right knee or hip strength (f/e) due to pain with ROM), No sensory deficit (LTS intact BLE) Results - Vitals Vitals: Oxygen O2 Source Room air Oxygen Flow Rate 2 PD MEDICAL DECISION MAKING - ED course Complexity details: reviewed old records, re-evaluated patient, considered d ifferential, d/w patient ED course: Emergent testing not indicated at this time. Afebrile, no elements of H+P to suggest neurosurgical/orthopedic emergency such as cauda equina (no saddle anesthesia, no loss of bowel/bladder continence, no report of weakness). Recent imaging outpatient is to be followed up in a few days with orthopedics. Symptoms c/w sciatica, will focus on symptom control tonight. Given dilaudid IV and PO valium with improved appearance (does not appear to be in as much discomfort and now has some mobility), although she reports minimal improvement. She is then given morphine and toradol IV and is drowsy on reevaluation, reports improvement but still with limited mobility. Given 10mg PO oxycodone and this resulted in adequate analgesia such that she was able to be put in a wheelchair (ED RN says she was able to stand, pivot, and take steps to wheelchair without assistance), and brought out to awaiting ride. I am prescribing a short course of short-acting opioid pain medication for this patient. 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 I have discussed that the opioids are for short term therapy only, and will not be refilled from the ED. Departure - Departure Disposition: 01 Home, Self Care Clinical Impression: Sciatica Qualifiers: Laterality: right Qualified Code(s): M54.31 - Sciatica, right side Condition: Good Instructions: ED Spasm Back No Trauma, ED Sciatica Prescriptions: Oxycodone HCl/Acetaminophen [Percocet 5-325 mg Tablet] 1 - 2 each PO Q6H PRN #14 tablet PRN Reason: pain diazePAM [Valium] 5 mg PO TID PRN #15 tablet PRN Reason: Spasms Comments: You can take the oxycodone INSTEAD of the vicodin (do not take these medications within 6 hours of each other; use whichever seems more effective for the pain). Use the valium (diazepam) as prescribed for treatment of muscle spasm. I am prescribing a short course of narcotic pain medication for you. These are potentially dangerous and addictive medications that should be used carefully. These medications may constipate you. Take an [id number] stool softener (docusate) twice daily with plenty of water while taking these medications. If you go 24 hours without a bowel movement, take [id number] miralax, per package instructions. Do not drink or drive while taking these medications. If you received narcotic or sedating medications while in the emergency department, do not drive for 24 hours. Store this medication in a safe, secure place and out of reach of children. It is a violation of federal law to give or sell this medication to another person or to use in a manner other than prescribed. The ED will not refill narcotic prescriptions, including prescriptions lost or stolen. To dispose of unwanted medications: 1. [facility] [address] in [place] has a medication drop box. They accept prescription medications (in pill form) Monday through Monday 9:00 a.m. to 5:00 p.m. 2. The [facility] accepts prescription medications (in pill form only) for disposal year round. Call for more information. 3. Contact the [facility] for the next LITTLE sponsored prescri Discharge Date/Time: 10/19/20 04:25
[2020-10-19] MEDS ORDERED: HYDROmorphone 1 MG/ML CARPUJECT IVP STA (00:16)
[2020-10-19] MEDS ORDERED: diazePAM 5 MG TABLET PO STA (00:16)
[2020-10-19] MEDS ORDERED: MORPHINE 2 MG/ML CARPUJECT IVP STA (02:22)
[2020-10-19] MEDS ORDERED: KETOROLAC 30 MG/ML VIAL IVP STA (02:22)
[2020-10-19] MEDS ORDERED: oxyCODONE 5 MG TABLET PO STA (03:31)
[2020-10-19 03:53] VITALS: BP 143/86
== END 2020-10-19 04:25 | disposition home or self-care (01) ==
LOC: EDUNIT# → ED 22:28
DX: M54.31 Sciatica, right side (principal)
CPT/HCPCS: 96374; 96375; 99283; 99284; A9270; J1170

== ENCOUNTER 2020-10-21 18:08 | Emergency (ER) | payer OTHER ==
[2020-10-21] MEDS ORDERED: methocarbamoL 500 MG TABLET PO STA (18:52)
[2020-10-21] MEDS ORDERED: DEXAMETHASONE 10 MG/ML VIAL PO STA (18:52)
[2020-10-21] MEDS ORDERED: oxyCODONE 5 MG TABLET PO STA (18:52)
[2020-10-21] MEDS ORDERED: MELOXICAM 7.5 MG TABLET PO STA (18:52)
[2020-10-21] MEDS ORDERED: LIDOCAINE PATCH 5% TOP STA (18:53)
--- NOTE | 2020-10-21 19:49 | ED Physician Documentation ---
PD HPI BACK PAIN - Stated complaint Stated Complaint: BACK PX - Chief complaint Chief Complaint: Back Pain - History obtained from History obtained from: Patient - History of Present Illness Timing - onset: How many weeks ago (1) Timing - duration: Weeks (1) Timing - details: Gradual onset Pain level max: 10 Pain level now: 10 Location: Lower, Right Quality: Pain, Spasm, Similar to prior episodes Associated symptoms: No: Fever, Weakness, Numbness, Incontinent of urine, Unable to urinate, Hematuria, Incontinent of stool Improves with: Rest Worsened by: Movement, Lifting Contributing factors: Out of meds. No: Lifting, Twisting, Trauma, Anticoagulated, Cancer, IVDA - Additional information Additional information: Patient was seen here 2 days ago for same. She states she is out of her medications and does not see her primary care doctor until tomorrow. She states she saw her surgeon yesterday but they did not discuss pain medication. 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 Musculoskeletal: Chronic back pain - Past Surgical History Past Surgical History: Yes Ortho: Spine surgery - Present Medications Home Medications: Ambulatory Orders Medication Instructions Recorded Confirmed Cyclobenzaprine [Flexeril] 10 mg PO TID PRN #20 tablet 03/01/20 Hydrocodone/Acetaminophen [[place] 1 - 2 each PO Q6HR PRN #14 tablet 03/01/20 5-325 Tablet] Meloxicam [Mobic] 7.5 mg PO BID 03/01/20 03/01/20 methocarbamoL [Robaxin-750] 750 mg PO BID PRN 03/01/20 03/01/20 dexAMETHasone [Decadron] 4 mg PO DAILY #5 tablet 10/13/20 Oxycodone HCl/Acetaminophen 1 - 2 each PO Q6H PRN #14 tablet 10/19/20 [Percocet 5-325 mg Tablet] diazePAM [Valium] 5 mg PO TID PRN #15 tablet 10/19/20 Lidocaine Patch 5% [Lidoderm Patch] 1 patch TOP DAILY PRN #10 patch 10/21/20 Meloxicam [Mobic] 15 mg PO DAILY PRN #20 tablet 10/21/20 Oxycodone HCl/Acetaminophen 1 - 2 each PO Q6H PRN #14 tablet 10/21/20 [Percocet 5-325 mg Tablet] methocarbamoL [Robaxin] 500 mg PO Q6H PRN #20 tablet 10/21/20 - Allergies Allergies/Adverse Reactions: Allergies Allergy/AdvReac Type Severity Reaction Status Date / Time No Known Drug Allergies Allergy Verified 10/21/20 18:20 - Social History Does the pt smoke?: No Smoking Status: Never smoker Does the pt drink ETOH?: No Does the pt have substance abuse?: No - Immunizations Immunizations are current?: No Immunizations: TDAP >10years/unknown - POLST Patient has POLST: No PD ED PE NORMAL - Vitals Vital signs reviewed: Yes - General General: Alert and oriented X 3, No acute distress, Well developed/nourished - HEENT HEENT: Moist mucous membranes - Neck Neck: Supple, no meningeal sign - Cardiac Cardiac: RRR, Strong equal pulses - Respiratory Respiratory: No respiratory distress, Clear bilaterally - Abdomen Abdomen: Soft, Non tender, Non distended - Back Back: No spinal TTP - Derm Derm: Warm and dry - Extremities Extremities: No edema - Neuro Neuro: Alert and oriented X 3, No motor deficit, No sensory deficit, Other (Normal bilateral lower extremity patellar and ankle jerk reflexes. Normal great toe extension bilaterally. no saddle anesthesia) Results - Vitals Vitals: Vital Signs - 24 hr 10/21/20 10/21/20 18:15 20:12 Temperature 36.5 C 37.2 C Heart Rate 101 H 95 Respiratory 14 16 Rate Blood Pressure 145/100 H 138/83 H O2 Saturation 100 98 Oxygen O2 Source Room air PD MEDICAL DECISION MAKING - ED course Complexity details: reviewed old records, reviewed results, re-evaluated patient, considered differential, d/w patient ED course: Prior visits reviewed. Pain well controlled here with pain medication, muscle relaxants. Patient feels well enough to go home at this time. Will prescribe pain medication for home until she can see her doctor tomorrow. She will disc uss a pain management plan with her doctor tomorrow. No evidence of cauda equina, epidural abscess. Patient counseled regarding signs and symptoms for which I believe and urgent re-evaluation would be necessary. Patient with good understanding of and agreement to plan and is comfortable going home at this time This document was made in part using voice recognition software. While efforts are made to proofread this document, sound alike and grammatical errors may occur. Departure - Departure Disposition: 01 Home, Self Care Clinical Impression: Sciatica Qualifiers: Laterality: right Qualified Code(s): M54.31 - Sciatica, right side Condition: Good Instructions: ED Sciatica Follow-Up: your,doctor tomorrow [Other] Prescriptions: Lidocaine Patch 5% [Lidoderm Patch] 1 patch TOP DAILY PRN #10 patch PRN Reason: pain Meloxicam [Mobic] 15 mg PO DAILY PRN #20 tablet PRN Reason: pain Oxycodone HCl/Acetaminophen [Percocet 5-325 mg Tablet] 1 - 2 each PO Q6H PRN #14 tablet PRN Reason: pain methocarbamoL [Robaxin] 500 mg PO Q6H PRN #20 tablet PRN Reason: muscle spasm Comments: Please follow-up with your doctor for further care. Discuss your pain medication options with your doctor tomorrow. I am prescribing a short course of narcotic pain medication for you. These are potentially dangerous and addictive medications that should be used carefully. These medications may constipate you. Take an yoqh-xen-cqayqzq stool softener (docusate) twice daily with plenty of water while taking these medications. If you go 24 hours without a bowel movement, take fzxe-ywd-hzdjvhu miralax, per package instructions. Do not drink or drive while taking these medications. If you received narcotic or sedating medications while in the emergency department, do not drive for 24 hours. Store this medication in a safe, secure place and out of reach of children. It is a violation of federal law to give or sell this medication to another person or to use in a manner other than prescribed. The ED will not refill narcotic prescriptions, including prescriptions lost or stolen. To dispose of unwanted medications: 1. [facility] [address] in [place] has a medication drop box. They accept prescription medications (in pill form) Monday through Monday 9:00 a.m. to 5:00 p.m. 2. The [facility] accepts prescription medications (in pill form only) for disposal year round. Call for more information. 3. Contact the [facility] for the next [facility] sponsored prescription drug collection event. , [phone], or [phone]; Discharge Date/Time: 10/21/20 20:17
[2020-10-21 20:13] VITALS: BP 138/83
== END 2020-10-21 20:17 | disposition home or self-care (01) ==
LOC: ED 18:08
DX: M54.31 Sciatica, right side (principal); G89.29 Other chronic pain; Z79.899 Other long term (current) drug therapy
CPT/HCPCS: 99284; A9270

== ENCOUNTER 2020-11-02 10:34 | Emergency (ER) | payer OTHER ==
[2020-11-02] MEDS ORDERED: DEXAMETHASONE 10 MG/ML VIAL PO STA (12:10)
[2020-11-02] MEDS ORDERED: MELOXICAM 7.5 MG TABLET PO STA (12:10)
[2020-11-02] MEDS ORDERED: oxyCODONE 5 MG TABLET PO STA (12:10)
[2020-11-02] MEDS ORDERED: CHERRY SYRUP 10 ML UDC PO ONE (12:10)
--- NOTE | 2020-11-02 12:12 | ED Physician Documentation ---
PD HPI BACK PAIN - Stated complaint Stated Complaint: BACK PX - Chief complaint Chief Complaint: Back Pain - History obtained from History obtained from: Patient - Additional information Additional information: She is been dealing with back pain since an injury in February. Its been particularly worse over the last few months. Had MRI she thinks a few weeks ago showing a disc herniation at L4-L5. She is seeing a specialist but just got authorization for surgery from [facility]. Pain is been particularly bad over the last 2 weeks with a shocking pain down the right leg. There is no associated saddle anesthesia, incontinence, or fevers. 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 This is her sixth visit to an emergency department in the last 12 months, getting prescriptions for narcotics at most. No real evidence of doctor shopping otherwise. 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 Musculoskeletal: Chronic back pain - Past Surgical History Past Surgical History: Yes Ortho: Spine surgery - Present Medications Home Medications: Ambulatory Orders Medication Instructions Recorded Confirmed Cyclobenzaprine [Flexeril] 10 mg PO TID PRN #20 tablet 03/01/20 Hydrocodone/Acetaminophen [[place] 1 - 2 each PO Q6HR PRN #14 tablet 03/01/20 5-325 Tablet] Meloxicam [Mobic] 7.5 mg PO BID 03/01/20 03/01/20 methocarbamoL [Robaxin-750] 750 mg PO BID PRN 03/01/20 03/01/20 dexAMETHasone [Decadron] 4 mg PO DAILY #5 tablet 10/13/20 Oxycodone HCl/Acetaminophen 1 - 2 each PO Q6H PRN #14 tablet 10/19/20 [Percocet 5-325 mg Tablet] diazePAM [Valium] 5 mg PO TID PRN #15 tablet 10/19/20 Lidocaine Patch 5% [Lidoderm Patch] 1 patch TOP DAILY PRN #10 patch 10/21/20 Meloxicam [Mobic] 15 mg PO DAILY PRN #20 tablet 10/21/20 Oxycodone HCl/Acetaminophen 1 - 2 each PO Q6H PRN #14 tablet 10/21/20 [Percocet 5-325 mg Tablet] methocarbamoL [Robaxin] 500 mg PO Q6H PRN #20 tablet 10/21/20 Meloxicam [Mobic] 7.5 mg PO BID PRN #20 tablet 11/02/20 Oxycodone HCl/Acetaminophen 1 - 2 each PO Q6H PRN #14 tablet 11/02/20 [Percocet 5-325 mg Tablet] predniSONE [Deltasone] 20 mg PO [id number] #21 tab 11/02/20 - Allergies Allergies/Adverse Reactions: Allergies Allergy/AdvReac Type Severity Reaction Status Date / Time No Known Drug Allergies Allergy Verified 11/02/20 10:43 - Social History Does the pt smoke?: No Smoking Status: Never smoker Does the pt drink ETOH?: No Does the pt have substance abuse?: No - Immunizations Immunizations are current?: No Immunizations: TDAP >10years/unknown - POLST Patient has POLST: No PD ED PE NORMAL - Vitals Vital signs reviewed: Yes - General General: Alert and oriented X 3, No acute distress - Abdomen Abdomen: Soft, Non tender - Back Back: No spinal TTP - Extremities Extremities: Other (Diminished and tingly sensation in the right L4/L5 distribu tion, diminished right patellar reflex, otherwise strength throughout the lower extremities is grossly intact but limited by pain.) - Neuro Neuro: Alert and oriented X 3, Normal speech - Psych Psych: Normal mood, Normal affect Results - Vitals Vitals: Vital Signs - 24 hr 11/02/20 11/02/20 10:38 11:17 Temperature 36.5 C 36.9 C Heart Rate 92 87 Respiratory 16 16 Rate Blood Pressure 165/83 H 150/91 H O2 Saturation 99 100 Oxygen O2 Source Room air PD MEDICAL DECISION MAKING - ED course ED course: This patient has seemingly uncomplicated musculoskeletal back pain. The patient has no "red flags." Specifically denies IV drug use, fevers, incontinence, saddle anesthesia. Spinal epidural abscess was considered, given that the patient has no fever, is not diabetic, has no spinal tenderness, does not use IV drugs, and has no bilateral neurologic symptoms, the diagnosis of spinal epidural abscess is considered exceedingly unlikely. I am prescribing a short course of short-acting opioid pain medication for this patient. 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 I have discussed that the opioids are for short term therapy only, and will not be refilled from the ED. Departure - Departure Disposition: Home, Self Care Clinical Impression: Sciatica Qualifiers: Laterality: right Qualified Code(s): M54.31 - Sciatica, right side Condition: Good Record reviewed to determine appropriate education?: Yes Instructions: ED Sciatica Prescriptions: predniSONE [Deltasone] 20 mg PO [id number] #21 tab Meloxicam [Mobic] 7.5 mg PO BID PRN #20 tablet PRN Reason: Pain Oxycodone HCl/Acetaminophen [Percocet 5-325 mg Tablet] 1 - 2 each PO Q6H PRN #14 tablet PRN Reason: pain Comments: As discussed you will need to follow-up with your primary care physician or back surgeon or pain management for further prescriptions for narcotics. Return for new or worsening symptoms. Follow-up with your back surgeon as soon as possible. The policy of this emergency department is to not give more than 3 prescriptions for narcotics or other controlled substances in any 1 year. You have already surpassed this benchmark and we cannot prescribe narcotics for you. I encourage you to follow up with your primary care physician or to establish care with a primary care physician for ongoing pain management. You are always welcome to seek emergency care here for this or new issues but there will likely be limitations in the prescription of narcotic pain medication. I am prescribing a short course of narcotic pain medication for you. These are potentially dangerous and addictive medications that should be used carefully. These medications may constipate you. Take an ngbf-czk-sokzfro stool softener (docusate) twice daily with plenty of water while taking these medications. If you go 24 hours without a bowel movement, take kgtk-uhy-ohzudab miralax, per package instructions. Do not drink or drive while taking these medications. If you received narcotic or sedating medications while in the emergency department, do not drive for 24 hours. Store this medication in a safe, secure place and out of reach of children. It is a violation of federal law to give or sell this medication to another person or to use in a manner other than prescribed. The ED will not refill narcotic prescriptions, including prescriptions lost or stolen. To dispose of unwanted medications: 1. [facility] [address] in [place] has a medication drop box. They accept prescription medications (in pill form) Monday through Monday 9:00 a.m. to 5:00 p.m. 2. The [facility] Police Department accepts prescription medications (in pill form only) for disposal year round. Call for more informat ion. 3. Contact the [facility] for the next [facility] sponsored prescription drug collection event. , [phone], or [phone]; Note that many narcotic pain relievers also contain Tylenol/acetaminophen. Please ensure that your total dose of acetaminophen from all sources does not exceed 3 g (3000 mg) per day.
[2020-11-02 13:25] VITALS: BP 130/88
== END 2020-11-02 13:28 | disposition home or self-care (01) ==
LOC: ED 10:34
DX: M54.31 Sciatica, right side (principal)
CPT/HCPCS: 99283; 99284; A9270

== ENCOUNTER 2020-11-19 11:51 | Outpatient (CLI) | payer OTHER ==
[2020-11-19 18:31] LABS: BACTERIA,URINE Rare /HPF (None Seen); BILIRUBIN,URINE NEGATIVE (NEGATIVE); CLARITY,URINE CLEAR (CLEAR); GLUCOSE, URINE (UA) NEGATIVE (NEGATIVE); KETONES,URINE (UA) NEGATIVE (NEGATIVE); LEUKOCYTE ESTERASE, URINE NEGATIVE (NEGATIVE); NITRITE,URINE NEGATIVE (NEGATIVE); OCCULT BLOOD,URINE NEGATIVE (NEGATIVE); PH,URINE 5.5 PH (5.0-7.5); PROTEIN,URINE NEGATIVE (NEGATIVE); RBC,URINE 0-5 /HPF (0-5); SQUAMOUS EPITHELIAL CELL,UR RARE Squamous (<= Few); UROBILINOGEN,URINE 0.2 (NORMAL) E.U./dL (NORMAL); WBC,URINE 0-3 /HPF (0-5)
[2020-11-19 18:49] LABS: BASOPHILS % (AUTO) 0.5 %; EOSINOPHILS % (AUTO) 1.2 %; HCT - HEMATOCRIT 40.9 % (37.0-47.0); HGB - HEMOGLOBIN 13.9 g/dL (12.0-16.0); LYMPHOCYTES # (AUTO) 3.3 10^3/uL (1.5-3.5); LYMPHOCYTES % (AUTO) 44.8 %; MEAN CORPUSCULAR HEMOGLOBIN 29.8 pg (27.0-31.0); MEAN CORPUSCULAR VOLUME 87.8 fL (81.0-99.0); MEAN PLATELET VOLUME 11.1 fL (7.9-10.8); MONOCYTES % (AUTO) 7.1 %; NEUTROPHILS # (AUTO) 3.4 10^3/uL (1.5-6.6); NEUTROPHILS % (AUTO) 46.1 %; PLT - PLATELET COUNT 409 10^3/uL (130-450); RED BLOOD COUNT 4.66 10^6/uL (4.20-5.40); RED CELL DISTRIBUTION WIDTH 41.5 % (12.0-15.0); WHITE BLOOD COUNT 7.4 x10^3/uL (4.8-10.8)
[2020-11-19 18:50] LABS: EOSINOPHILS # (AUTO) 0.1 10^3/uL (0.0-0.7); MONOCYTES # (AUTO) 0.5 10^3/uL (0.0-1.0)
[2020-11-19 19:25] LABS: CALCIUM 9.5 mg/dL (8.5-10.3); CREATININE 0.5 mg/dL (0.4-1.0); POTASSIUM 3.7 mmol/L (3.5-5.0)
== END 2020-11-19 23:59 | disposition home or self-care (01) ==
LOC: LAB.WCP 11:51
PROVIDERS: ATTEND Nurse Practitioner
DX: R53.83 Other fatigue (principal)
CPT/HCPCS: 36415; 80048; 81001; 85025; 87086

== ENCOUNTER 2022-03-05 07:31 | Outpatient (CLI) | payer OTHER ==
[2022-03-05 08:45] LABS: CREATININE 0.6 mg/dL (0.4-1.0)
[2022-03-05] MEDS ORDERED: GADOBUTROL 7.5 MMOL/7.5 ML VIAL ONE (08:48)
[2022-03-05] MEDS ORDERED: GADOBUTROL 7.5 MMOL/7.5 ML VIAL IVP ONE (09:41)
--- NOTE | 2022-03-06 07:16 | MRI Report ---
PROCEDURE: LUMBAR SPINE W/WO INDICATIONS: INTERMITTENT SPINAL CLAUDICATION CONTRAST: GADAVIST 7.5ML TECHNIQUE: Noncontrast sagittal T1 spin echo and T2 fast spin echo, sagittal STIR, axial T1 and T2 fast spin ech o through the lumbar spine. In cases with scoliosis, additional coronal T2 fast spin echo may be per formed. After the administration of contrast, sagittal and axial T1 spin echo with fat saturation th rough the lumbar spine. COMPARISON: None. FINDINGS: Image quality: Excellent. Alignment and curvature: There is normal bony alignment. In the absence of plain films, the surgical level, as provided by history, is described as being L4-L5. There is been posterior lateral austen and pedicle screw fixation bilaterally at L4-L5 with interbody disc prosthesis, and left laminectomy. Marrow: Marrow is of normal overall signal. No acute vertebral body compression fractures. No susp icious marrow enhancement. Spinal cord: Conus medullaris terminates at the T12-L1 level. Visualized spinal cord demonstrates n ormal signal, without suspicious enhancement. Paraspinous soft tissues: No paravertebral masses or abnormal enhancement. T12-L1: No canal stenosis or foraminal stenosis. L1-L2: No canal stenosis or foraminal stenosis. L2-L3: No canal stenosis or foraminal stenosis. L3-L4: Mild disc bulge. Facet hypertrophy. Mild canal stenosis. Mild bilateral foraminal stenosis. L4-L5: Fused. No canal stenosis or foraminal stenosis. L5-S1: No canal stenosis or foraminal stenosis. Bilateral facet hypertrophy. IMPRESSION: 1. Remote fusion at L4-L5. 2. Lower lumbar facet hypertrophy. 3. Mild canal stenosis at L3-L4. Reviewed by: Neil Monique MD on 03/06/2022 7:14 AM PST Approved by: Neil Monique MD on 03/06/2022 7:14 AM PST Station ID: [id number]
== END 2022-03-05 07:32 | disposition home or self-care (01) ==
LOC: LAB 07:31
PROVIDERS: ATTEND Registered Nurse
DX: M51.16 Intervertebral disc disorders with radiculopathy, lumbar region (principal); M48.062 Spinal stenosis, lumbar region with neurogenic claudication; M47.26 Other spondylosis with radiculopathy, lumbar region; M47.27 Other spondylosis with radiculopathy, lumbosacral region; Z98.1 Arthrodesis status
CPT/HCPCS: 36415; 72158; 82565; A9585

== ENCOUNTER 2022-07-12 08:00 | Outpatient (CLI) | payer OTHER ==
[2022-07-12 19:34] LABS: INFLUENZA A- RESP PCR PANEL NOT DETECTED; INFLUENZA B - RESP PCR PANEL NOT DETECTED; SARS-CoV-2 -RESP PCR PANEL NOT DETECTED
[2022-07-12 19:35] LABS: RSV- RESP PCR PANEL NOT DETECTED
== END 2022-07-12 23:59 | disposition home or self-care (01) ==
LOC: LAB.WCP 08:00
PROVIDERS: ATTEND Nurse Practitioner
DX: J06.9 Acute upper respiratory infection, unspecified (principal); J02.9 Acute pharyngitis, unspecified; Z20.822 Contact with and (suspected) exposure to COVID-19
CPT/HCPCS: 87637

== ENCOUNTER 2022-10-30 13:12 | Emergency (ER) | payer OTHER ==
[2022-10-30 13:29] VITALS: BP 150/88; O2SAT 99
[2022-10-30] MEDS ORDERED: BACITRACIN ZINC OINT 1 PACKET TOP STA (13:45)
--- NOTE | 2022-10-30 13:49 | ED Physician Documentation ---
PD HPI SKIN - Stated complaint Stated Complaint: RT LOWER LEG SWELLING/ITCHY - Chief complaint Chief Complaint: Wound - History obtained from History obtained from: Patient - Additional information Additional information: Patient is a 41-year-old female presenting for evaluation of bug bite or sting to the posterior right thigh since Monday. Patient is unsure of what caused the bite or sting. She reports itchiness to the area. She has tried topical hydrocortisone ointment without any significant improvement. She denies shortness of air, airway swelling. No fevers. No abnormal drainage. 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 Musculoskeletal: Chronic back pain - Past Surgical History Past Surgical History: Yes Ortho: Spine surgery - Present Medications Home Medications: Ambulatory Orders Medication Instructions Recorded Confirmed Cyclobenzaprine [Flexeril] 10 mg PO TID PRN #20 tablet 03/01/20 Hydrocodone/Acetaminophen [[place] 1 - 2 each PO Q6HR PRN #14 tablet 03/01/20 5-325 Tablet] Meloxicam [Mobic] 7.5 mg PO BID 03/01/20 03/01/20 methocarbamoL [Robaxin-750] 750 mg PO BID PRN 03/01/20 03/01/20 dexAMETHasone [Decadron] 4 mg PO DAILY #5 tablet 10/13/20 Oxycodone HCl/Acetaminophen 1 - 2 each PO Q6H PRN #14 tablet 10/19/20 [Percocet 5-325 mg Tablet] diazePAM [Valium] 5 mg PO TID PRN #15 tablet 10/19/20 Lidocaine Patch 5% [Lidoderm Patch] 1 patch TOP DAILY PRN #10 patch 10/21/20 Meloxicam [Mobic] 15 mg PO DAILY PRN #20 tablet 10/21/20 Oxycodone HCl/Acetaminophen 1 - 2 each PO Q6H PRN #14 tablet 10/21/20 [Percocet 5-325 mg Tablet] methocarbamoL [Robaxin] 500 mg PO Q6H PRN #20 tablet 10/21/20 Meloxicam [Mobic] 7.5 mg PO BID PRN #20 tablet 11/02/20 Oxycodone HCl/Acetaminophen 1 - 2 each PO Q6H PRN #14 tablet 11/02/20 [Percocet 5-325 mg Tablet] predniSONE [Deltasone] 20 mg PO [id number] #21 tab 11/02/20 Bacitracin Zinc Oint 1 applic TOP BID #1 each 10/30/22 - Allergies Allergies/Adverse Reactions: Allergies Allergy/AdvReac Type Severity Reaction Status Date / Time No Known Drug Allergies Allergy Verified 10/30/22 13:19 - Social History Does the pt smoke?: No Smoking Status: Never smoker Does the pt drink ETOH?: No Does the pt have substance abuse?: No - Immunizations Immunizations are current?: No Immunizations: TDAP >10years/unknown - POLST Patient has POLST: No PD ED PE NORMAL - General General: Alert and oriented X 3, No acute distress, Well developed/nourished - HEENT HEENT: Atraumatic - Neck Neck: Supple, no meningeal sign - Cardiac Cardiac: RRR - Respiratory Respiratory: No respiratory distress, Clear bilaterally - Extremities Extremities: Other (0.5 cm area of raised erythema To right posterior thigh with surrounding erythema, no warmth, no fluctuance to suggest abscess) Results - Vitals Vitals: Vital Signs - 24 hr 10/30/22 13:19 Temperature 36.5 C Heart Rate 80 Respiratory 16 Rate Blood Pressure 150/88 H O2 Saturation 99 Oxygen O2 Source Room air PD Medical Decision Making - ED course ED course: Patient Presenting for evaluation of bite or sting to right posterior thigh that has been present for approximately 48 hours. No signs of anaphylaxis or respiratory symptoms. Wound was examined and it does not appear to be cellulitic or infection at this time. I suspect that the surrounding erythema is a localized inflammatory response. Discussed continued supportive care as well as concerning symptoms to return for. Departure - Departure Disposition: 01 Home, Self Care Clinical Impression: Insect bite of thigh with local reaction Qualifiers: Encounter type: initial encounter Laterality: right Qualified Code(s): S70.361A - Insect bite (nonvenomous), right thigh, initial encounter Condition: Stable Instructions: ED Bite Insect Prescriptions: Bacitracin Zinc Oint 1 applic TOP BID #1 each Comments: You appear to be having a localized reaction to an insect bite or sting. Please continue with oral Benadryl and keeping the wound clean and dry. In order to prevent any infection from developing due to the scratching I will also send a prescription for an antibiotic ointment called bacitracin to [facility] pharmacy. Return to the ER if you develop worsening symptoms such as increased swelling or abnormal drainage. Please continue with ice and an antihistamine such as Claritin or Zyrtec daily. I would expect your symptoms to get better over the next 48 hours. Forms: PCP List Discharge Date/Time: 10/30/22 14:03
== END 2022-10-30 14:03 | disposition home or self-care (01) ==
LOC: ED 13:12
DX: T63.481A Toxic effect of venom of other arthropod, accidental (unintentional), initial encounter (principal)
CPT/HCPCS: 99282; 99283

== ENCOUNTER 2023-08-16 23:00 | Emergency (ER) | payer OTHER, MEDICAID ==
[2023-08-17] MEDS: PROPARACAINE 0.5% OPHTH DROPS 15 ML EACHEYE STA (00:49)
--- NOTE | 2023-08-17 01:32 | ED Physician Documentation ---
History of Present Illness - Stated complaint Stated Complaint: LT EYE IRRITATION - Chief complaint Chief Complaint: Heent - History obtained from History obtained from: Patient - Additonal information Additional information: 42yF contact lens wearer presents with concern she can't get her left contact lens out. also with irritation to the eye. PD PAST MEDICAL HISTORY - Past Medical History Past Medical History: No ASSORTER: None Musculoskeletal: Chronic back pain - Past Surgical History Past Surgical History: Yes Ortho: Spine surgery - Present Medications Home Medications: Ambulatory Orders Medication Instructions Recorded Confirmed Cyclobenzaprine [Flexeril] 10 mg PO TID PRN #20 tablet 03/01/20 Hydrocodone/Acetaminophen [[place] 1 - 2 each PO Q6HR PRN #14 tablet 03/01/20 5-325 Tablet] Meloxicam [Mobic] 7.5 mg PO BID 03/01/20 03/01/20 methocarbamoL [Robaxin-750] 750 mg PO BID PRN 03/01/20 03/01/20 dexAMETHasone [Decadron] 4 mg PO DAILY #5 tablet 10/13/20 Oxycodone HCl/Acetaminophen 1 - 2 each PO Q6H PRN #14 tablet 10/19/20 [Percocet 5-325 mg Tablet] diazePAM [Valium] 5 mg PO TID PRN #15 tablet 10/19/20 Lidocaine Patch 5% [Lidoderm Patch] 1 patch TOP DAILY PRN #10 patch 10/21/20 Meloxicam [Mobic] 15 mg PO DAILY PRN #20 tablet 10/21/20 Oxycodone HCl/Acetaminophen 1 - 2 each PO Q6H PRN #14 tablet 10/21/20 [Percocet 5-325 mg Tablet] methocarbamoL [Robaxin] 500 mg PO Q6H PRN #20 tablet 10/21/20 Meloxicam [Mobic] 7.5 mg PO BID PRN #20 tablet 11/02/20 Oxycodone HCl/Acetaminophen 1 - 2 each PO Q6H PRN #14 tablet 11/02/20 [Percocet 5-325 mg Tablet] predniSONE [Deltasone] 20 mg PO [id number] #21 tab 11/02/20 Bacitracin Zinc Oint 1 applic TOP BID #1 each 10/30/22 Mineral Oil/Petrolatum,White 3.5 gm OP QPM #1 gm 08/17/23 [Lubricant Pm Eye Ointment] Ofloxacin 0.3% Ophth Drops 2 drops OPTH Q4H 10 Days #5 ml 08/17/23 [Ocuflox 0.3% Ophth Drops] - Allergies Allergies/Adverse Reactions: Allergies Allergy/AdvReac Type Severity Reaction Status Date / Time No Known Drug Allergies Allergy Verified 08/16/23 23:40 - Social History Does the pt smoke?: No Smoking Status: Never smoker Does the pt drink ETOH?: No Does the pt have substance abuse?: No - Immunizations Immunizations are current?: No Immunizations: TDAP >10years/unknown - POLST Patient has POLST: No PD ED PE NORMAL - Vitals Vital signs reviewed: Yes - General General: Alert and oriented X 3, No acute distress, Well developed/nourished - HEENT HEENT: Atraumatic, PERRL, EOMI, Other (L eye with no foreign material or contact lens visible on eversion of lids. fluorescein exam with multiple small abrasions) Results - Vitals Vitals: Vital Signs - 24 hr 08/16/23 23:39 Temperature 36.6 C Heart Rate 76 Respiratory 16 Rate Blood Pressure 138/84 H O2 Saturation 99 Oxygen O2 Source Room air PD Medical Decision Making - ED course ED course: 42-year-old woman presents with multiple corneal abrasions from contact lens. Antibiotic and lubricating eyedrops sent to pharmacy. Symptomatic care discussed and return precautions given. Plan to follow-up with her eye doctor. Departure - Departure Disposition: 01 Home, Self Care Clinical Impression: Corneal abrasion due to contact lens Condition: Stable Instructions: ED Eye Injury Corneal Abrasion Prescriptions: Mineral Oil/Petrolatum,White [Lubricant Pm Eye Ointment] 3.5 gm OP QPM #1 gm Ofloxacin 0.3% Ophth Drops [Ocuflox 0.3% Ophth Drops] 2 drops OPTH Q4H 10 Days #5 ml Comments: You were seen in the emergency department for Scratch to the eye due to contact lens. Do not wear contact lenses for at least 14 days. Antibiotic eyedrops were sent to your [facility] pharmacy. Please follow-up with your eye doctor and return to the emergency department if you have any new or worsening symptoms or other concerns.
[2023-08-17 01:54] VITALS: BP 128/81; O2SAT 97
== END 2023-08-17 01:51 | disposition home or self-care (01) ==
LOC: ED 23:00
DX: H18.822 Corneal disorder due to contact lens, left eye (principal); Z79.899 Other long term (current) drug therapy
CPT/HCPCS: 99284; J3490